=== PATIENT | female | born 1980 | race African-American/Black ===

== ENCOUNTER 2020-02-16 22:23 | Emergency (ER) | payer BC ==
[~2020-02-16] VITALS: Ht 182.9 cm; Wt 105.7 kg
[2020-02-16 22:32] VITALS: Ht 182.9 cm; Wt 105.7 kg
[2020-02-17 00:39] LABS: BASOPHIL % 1.2 % (0-2); RED CELL DISTRIBUTION WIDTH 14.3 % (11.5-14.5)
[2020-02-17 00:50] LABS: PLATELET COUNT 422 x10^3mcL (130-400)
[2020-02-17 00:51] LABS: CALCIUM 9.4 mg/dL (8.5-10.1); CARBON DIOXIDE 26.6 mmol/L (21-32); CHLORIDE SERUM 98 mmol/L (98-107); CREATININE SERUM 0.9 mg/dL (0.6-1.0); GFR1 > 60 mL/min; GLUCOSE SERUM 93 mg/dL (74-106); POTASSIUM SERUM 4.1 mmol/L (3.5-5.1); SODIUM SERUM 134 mmol/L (136-145)
[2020-02-17 00:56] LABS: ALBUMIN 3.6 g/dL (3.4-5.0); ALKALINE PHOSPHATASE 58 U/L (46-116); ALT/SGPT 27 U/L (14-59); AST/SGOT 13 U/L (15-37); BILIRUBIN TOTAL 0.24 mg/dL (0.20-1.00); TOTAL PROTEIN, SERUM 7.9 g/dL (6.4-8.2)
[2020-02-17 05:01] VITALS: BP 118/54
== END 2020-02-17 05:01 | disposition home or self-care (01) ==
LOC: ED 22:23
PROVIDERS: Student in an Organized Health Care Education/Training Program
DX: R07.89 Other chest pain (principal); Z88.0 Allergy status to penicillin
CPT/HCPCS: Q0092